=== PATIENT | male | born 1980 | race Caucasian/White ===

== ENCOUNTER → 2022-07-08 | Outpatient (CLI) | payer OTHER ==
--- NOTE | 2022-07-08 16:26 | Diagnostic Imaging Report ---
PROCEDURE: MRI right joint upper extremity without contrast. TECHNIQUE: Multiplanar, multisequence non contrast-enhanced MRI of the right wrist was accomplished. INDICATION: Radial-sided wrist pain. COMPARISON: None available. FINDINGS: Tendons: The 1st extensor compartment tendons are intact but have surrounding T2 hyperintense fluid indicative of tenosynovitis. Remainder of the extensor tendons are normal without surrounding edema/fluid. Flexor tendons are intact without tenosynovitis. No abnormality of the flexor tendon. Intrinsic ligaments: The TFC articular disc is intact. The dorsal and volar bands of the scapholunate ligament are normal. Lunotriquetral ligament integrity cannot be assessed without intra-articular contrast. Bones: No avascular necrosis in the lunate. The alignment is normal. No fracture or concerning marrow replacing process. Other: No T2 hyperintense ganglion cyst about the wrist. No mass effect on the median or ulnar nerves. IMPRESSION: Tenosynovitis of the 1st extensor compartment (De Quervain's tenosynovitis) should account for the patient's radial-sided wrist pain as it corresponds to the site of maximal pain demarcated by a skin marker. Dictated by: Dictated on workstation # [id number]
== END ==
LOC: RAD 14:07
PROVIDERS: ATTEND Nurse Practitioner
DX: M65.88 Other synovitis and tenosynovitis, other site (principal); M84.38XA Stress fracture, other site, initial encounter for fracture; S66.211D Strain of extensor muscle, fascia and tendon of right thumb at wrist and hand level, subsequent encounter; X58.XXXD Exposure to other specified factors, subsequent encounter
CPT/HCPCS: 73221

== ENCOUNTER → 2022-09-03 | Outpatient (CLI) | payer SELFPAY | LOC: LAB 08:23 | PROVIDERS: ATTEND Urology | DX: Z30.2 Encounter for sterilization (principal) | CPT/HCPCS: 89321 ==